=== PATIENT | male | born 1965 | race Caucasian/White ===

== ENCOUNTER 2018-02-12 09:34 | Emergency (ER) | payer OTHER ==
[~2018-02-12] VITALS: Ht 172.7 cm; Wt 82.7 kg
[2018-02-12 09:46] VITALS: BP 171/95
[2018-02-12] MEDS ORDERED: LORA10CA PO (09:56)
== END 2018-02-12 11:46 | disposition home or self-care (01) ==
LOC: ED 11:15
DX: M79.661 Pain in right lower leg (principal)
CPT/HCPCS: 99284